=== PATIENT | male | born 1955 | race Caucasian/White ===

== ENCOUNTER 2017-08-04 09:29 | Emergency (ER) | payer SELFPAY ==
[2017-08-04 09:34] VITALS: BP 168/102; BMI 31.3
[2017-08-04 10:00] LABS: BILIRUBIN,URINE NEGATIVE (NEGATIVE); BLOOD/HEMOGLOBIN,URINE 2+ (NEGATIVE); GLUCOSE, URINE 1+ (NEGATIVE); KETONES,URINE 1+ (NEGATIVE); LEUKOCYTE ESTERASE ,URINE 1+ (NEGATIVE); NITRITES,URINE NEGATIVE (NEGATIVE); PROTEIN,URINE 2+ (NEGATIVE); UROBILINOGEN,URINE NORMAL (NORMAL)
[2017-08-04 10:20] LABS: APPEARANCE,URINE CLEAR (CLEAR); BACTERIA,URINE NEGATIVE /HPF (NEGATIVE); COLOR,URINE YELLOW (YELLOW); RBC,URINE RARE /HPF (NEGATIVE); SQUAMOUS EPITHELIAL CELL,UR RARE /HPF (NEGATIVE)
[2017-08-04] MEDS ORDERED: TORADOL 30 MG VIAL IVP ONE (10:23)
[2017-08-04] MEDS ORDERED: NS 1000 ML 1,000 ML IV ONE (10:23)
--- NOTE | 2017-08-04 10:24 | DR.GENAD ---
HPI - PCP Primary Care Physician: CHARLIE NIGRAM - HPI Comment HPI Comment: HISTORY KIDNEY STONE. NO FEVER OR DYSURIA. - Complaint/Symptoms Chief Complaint Doctors Comments: LEFT FLANK PAIN. STARTED LAST NIGHT. Chief Complaint:: PATIENT STATED THAT HE BELIEVES HE HAS A KIDNEY. LAST NIGHT HE STARTED HURTING AND HAS TOOK A NORCO BUT THROUGH UP. HE HAS A HISTORY OF KIDNEY STONES. - Nurses notes reviewed Nurses Notes Review: Yes - Source History Provided: Patient - Mode of Arrival Mode of Arrival: Ambulatory - Timing Onset of Chief Complaint: 08/03/17 Came on: Suddenly - Duration Duration: Constant Duration: Hours - Severity Severity: Moderate PMH - PMH Past Medical History: Yes Past Medical History: Hypertension, Kidney Stones, PUD Past Surgical History: Yes Surgical History: Appendectomy, Ortho Surgery - Family History History of Family Medical Conditions: Yes Family Medical History: Hypertension - Social History Does patient currently use any type of tobacco product: No Have you used tobacco products in the last 12 months: No Type of Tobacco Use: None Does any household member use tobacco: No Alcohol Use: Rarely Do you use any recreational Drugs:: No Lives With: Family Lives Where: Home - infectious screening In the last 2 months have you had wt loss of >10#?: NO Have you had fever, night sweats or hemotysis?: No Have you traveled outside the country in the last 6 months?: No Isolation: Standard ROS - Review of Systems Constitutional: No Symptoms Reported Eyes: No Symptoms Reported ENTM: No Symptoms Reported Respiratoy: No Symptoms Reported Cardiovascular: No Symptoms Reported Gastrointestinal/Abdominal: No Symptoms Reported Genitourinary: No Symptoms Reported Neurological: No Symptoms Reported Musculoskeletal: Other (RIGHT FLANK PAIN) Integumentary: No Symptoms Reported Hematologic/Lymphatic: No Symptoms Reported Endocrine: No Symptoms Reported All Other Systems: Reviewed and Negative PE - Vital Signs Vitals: Temperature 98.5 F Pulse Rate 68 Respiratory Rate 20 Blood Pressure 168/102 O2 Sat by Pulse Oximetry 96 - General Limitations: No Limitations General Appearance: Alert - Head Head Exam: Normal Inspection - Eyes Eye exam: Normal Appearance - ENT ENT Exam: Normal External Ear Exam External Ear Exam: Normal External Inspection TM/Canal Exam: Bilateral Normal Nose Exam: Normal Nose Exam Mouth Exam: Normal Inspection Throat Exam: Normal Inspection - Neck Neck Exam: Normal Inspection, Trachea Midline - Chest Chest Inspection: Symmetric Chest Wall Rise - Respiratory Respiratory Exam: Normal Lung Sounds Bilat Respiratory Exam: Bilateral Clear to Auscultation - Cardiovascular Cardiovascular Exam: Regular Rate, Normal Rhythm, Normal Heart Sounds - Abdominal Exam Abdominal Exam: Normal Bowel Sounds, Soft - Extremities Extremities Exam: Normal Inspection - Back Back Exam: negative: (L) CVA Tenderness - Neurologic Neurological Exam: Alert, Oriented X3 - Psychiatric Psychiatric Exam: Normal Affect, Normal Mood - Skin Skin Exam: Normal Color MDM - Additional Information Additional Information Obtained From: Family - Differential Diagnosis Differential Diagnosis: KIDNEY STONE, UTI Course - Treatment Treatment: SEE ORDERS - Consultation Consultation Comments: DISCUSS PATIENT WITH DR. CLEANING, HE WILL SEE PATIENT IN HIS OFFICE NOW. - Education/Counseling Education/Counseling: Patient, Family, Education Educated On: Treatment, Diagnosis ROR - Labs Reviewed Laboratory Results Reviewed?: Yes Result Diagrams: 08/04/17 10:32 08/04/17 10:32 Laboratory: WBC 13.0 X10^3/uL (3.6-10.0) H 08/04/17 10:32 RBC 5.51 X10^6/uL (4.7-6.0) 08/04/17 10:32 Hgb 16.2 g/dL (13.5-18.0) 08/04/17 10:32 Hct 46.2 % (42.0-54.0) 08/04/17 10:32 MCV 83.8 fL (80.0-100.0) 08/04/17 10:32 MCH 29.5 pg (27.0-34.0) 08/04/17 10:32 MCHC 35.2 g/dL (33.0-35.0) H 08/04/17 10:32 RDW 14.1 % (11.6-16.5) 08/04/17 10:32 Plt Count 162 X10^3/uL (150.0-450.0) 08/04/17 10:32 MPV 9.6 fL (7.4-11.0) 08/04/17 10:32 Neut % 81.4 % (42.0-75.0) H 08/04/17 10:32 Lymph % 8.6 % (21.0-51.0) L 08/04/17 10:32 [place] % 9.0 % (0.0-13.0) 08/04/17 10:32 Eos % 0.2 % (0.9-2.9) L 08/04/17 10:32 Baso % 0.8 % (0.2-1.0) 08/04/17 10:32 Neut # 10.6 x10^3/uL (2.2-4.8) H 08/04/17 10:32 Lymph # 1.1 X10^3/uL (1.3-2.9) L 08/04/17 10:32 [place] # 1.2 x10^3/uL (0.3-0.8) H 08/04/17 10:32 Eos # 0.0 x10^3/uL (0.0-0.2) 08/04/17 10:32 Baso # 0.1 X10^3/uL (0.0-0.1) 08/04/17 10:32 Absolute Nucleated RBC 0.1 /100WBC 08/04/17 10:32 Sodium 136 mmol/L (136-145) 08/04/17 10:32 Corrected Sodium TNP 08/04/17 10:32 Potassium 4.3 mmol/L (3.5-5.1) 08/04/17 10:32 Chloride 103 mmol/L (98-107) 08/04/17 10:32 Carbon Dioxide 25.2 mmol/L (21-32) 08/04/17 10:32 BUN 22 mg/dL (7-18) H 08/04/17 10:32 Creatinine 2.19 mg/dL (0.70-1.30) H 08/04/17 10:32 Est GFR (MDRD) Af Amer 39 (>60) L 08/04/17 10:32 Est GFR (MDRD) Non-Af 32 (>60) L 08/04/17 10:32 Glucose 110 mg/dL (65-99) H 08/04/17 10:32 Calcium 8.8 mg/dL (8.5-10.1) 08/04/17 10:32 Corrected Calcium 9.4 mg/dL (8.5-10.1) 08/04/17 10:32 Total Bilirubin 1.60 mg/dL (0.2-1.0) H 08/04/17 10:32 AST 25 Units/L (15-37) 08/04/17 10:32 ALT 45 Units/L (12-78) 08/04/17 10:32 Alkaline Phosphatase 84 Units/L (46-116) 08/04/17 10:32 Total Protein 6.8 g/dL (6.4-8.2) 08/04/17 10:32 Albumin 3.2 g/dL (3.4-5.0) L 08/04/17 10:32 Globulin 3.6 g/dL (2.5-4.5) 08/04/17 10:32 Albumin/Globulin Ratio 0.9 Ratio (1.1-2.1) L 08/04/17 10:32 Specimen Type Clean catch urine 08/04/17 09:46 Urine Color Yellow (YELLOW) 08/04/17 09:46 Urine Appearance Clear (CLEAR) 08/04/17 09:46 Urine pH 6.0 (5.0 - 8.0) 08/04/17 09:46 Ur Specific [place] 1.015 (1.000-1.030) 08/04/17 09:46 Urine Protein 2+ (NEGATIVE) 08/04/17 09:46 Urine Glucose (UA) 1+ (NEGATIVE) 08/04/17 09:46 Urine Ketones 1+ (NEGATIVE) 08/04/17 09:46 Urine Occult Blood 2+ (NEGATIVE) 08/04/17 09:46 Urine Nitrite Negative (NEGATIVE) 08/04/17 09:46 Urine Bilirubin Negative (NEGATIVE) 08/04/17 09:46 Urine Urobilinogen Normal (NORMAL) 08/04/17 09:46 Ur Leukocyte Esterase 1+ (NEGATIVE) 08/04/17 09:46 Urine RBC Rare /HPF (NEGATIVE) 08/04/17 09:46 Urine WBC 0-2 /HPF (NEGATIVE) 08/04/17 09:46 Ur Squamous Epith Cells Rare /HPF (NEGATIVE) 08/04/17 09:46 Urine Bacteria Negative /HPF (NEGATIVE) 08/04/17 09:46 Ur Culture Indicated? No/not indicated 08/04/17 09:46 - XRAY XRAY Interpreted by: Radiologist XRAY Findings: REPORT DISCUSS WITH PATIENT AND FAMILY. - Diagnosis Discharge Problem: Left flank pain, Left ureteral calculus, Elevated serum creatinine - Discharge Plan Condition: Stable - Follow ups/Referrals Follow ups/Referrals: CHARLIE INGRAM [Primary Care Provider] - 3 days - Instructions Instructions: Kidney Stones, [id number] Additional Instructions: RETURN [facility] IF WORSE. TO DR. JOHNSTON OFFICE IN [place].
[2017-08-04] MEDS ORDERED: ZOFRAN INJ 4 MG VIAL IM ONE (10:26)
[2017-08-04] MEDS ORDERED: NS 1000 ML 1,000 ML ONE (10:29)
[2017-08-04] MEDS ORDERED: ZOFRAN INJ 4 MG VIAL ONE (10:29)
[2017-08-04] MEDS ORDERED: TORADOL 30 MG VIAL ONE (10:30)
[2017-08-04 10:56] LABS: BASOPHILS # (AUTO) 0.1 X10^3/uL (0.0-0.1); BASOPHILS % (AUTO) 0.8 % (0.2-1.0); EOSINOPHILS % (AUTO) 0.2 % (0.9-2.9); HEMATOCRIT 46.2 % (42.0-54.0); HEMOGLOBIN 16.2 g/dL (13.5-18.0); LYMPHOCYTES # (AUTO) 1.1 X10^3/uL (1.3-2.9); LYMPHOCYTES % (AUTO) 8.6 % (21.0-51.0); MEAN CORPUSCULAR HEMOGLOBIN 29.5 pg (27.0-34.0); MEAN CORPUSCULAR HGB CONC 35.2 g/dL (33.0-35.0); MEAN CORPUSCULAR VOLUME 83.8 fL (80.0-100.0); MEAN PLATELET VOLUME 9.6 fL (7.4-11.0); MONOCYTES # (AUTO) 1.2 x10^3/uL (0.3-0.8); NEUTROPHILS # (AUTO) 10.6 x10^3/uL (2.2-4.8); NEUTROPHILS % (AUTO) 81.4 % (42.0-75.0); PLATELET COUNT 162 X10^3/uL (150.0-450.0); RED BLOOD COUNT 5.51 X10^6/uL (4.7-6.0); RED CELL DISTRIBUTION WIDTH 14.1 % (11.6-16.5)
[2017-08-04 10:59] LABS: ALANINE AMINOTRANSFERASE 45 Units/L (12-78); ALBUMIN 3.2 g/dL (3.4-5.0); ALKALINE PHOSPHATASE 84 Units/L (46-116); ASPARTATE AMINO TRANSFERASE 25 Units/L (15-37); BLOOD UREA NITROGEN 22 mg/dL (7-18); CALCIUM 8.8 mg/dL (8.5-10.1); CARBON DIOXIDE 25.2 mmol/L (21-32); CHLORIDE 103 mmol/L (98-107); COR CA(FOR HYPOALB) 9.4 mg/dL (8.5-10.1); CREATININE 2.19 mg/dL (0.70-1.30); SODIUM 136 mmol/L (136-145); TOTAL PROTEIN 6.8 g/dL (6.4-8.2); eGFR BLACK RACES 39 (>60); eGFR NON BLACK RACES 32 (>60)
--- NOTE | 2017-08-04 12:32 | CT ---
HISTORY: Left flank pain, hematuria Study: CT abdomen pelvis without contrast Comparison: 10/11/2016 Technique: Axial noncontrast images with coronal and sagittal reformats. Dose reduction procedures we re used with mA/kv adjusted for body size. Findings: Lung bases are clear. Coronary artery calcifications are present. There is a moderately large hiatal hernia present. The liver and, spleen, adrenal glands, and pancreas are within normal limits to the l imitations of an unenhanced examination. No opaque stones are visible within the gallbladder. There i s a 3 mm a right lower pole renal calculus present. There is a 1 cm hyperdense right renal cyst prese nt. There is mild right-sided hydroureteronephrosis proximal to a 3 mm calculus located at or near th e right ureterovesical junction. There is left-sided hydroureteronephrosis proximal to an 8.6 mm prox imal left ureteral calculus located just distal to the ureteropelvic junction. No intraperitoneal or retroperitoneal lymphadenopathy of significance is identified. The appendix is not identified. There are no secondary signs of appendicitis. There are no findings suggestive of diverticulitis or colitis . Examination of the pelvis demonstrated no evidence for pelvic masses, pelvic fluid, or pelvic lymph adenopathy. No lytic or blastic skeletal lesions are identified. IMPRESSION: 3 mm mildly obstructing distal right ureteral calculus located at or near the right ureterovesical ju nction Obstructing 8.6 mm left ureteral calculus located in the proximal left ureter just distal to the uret eropelvic junction 3 mm nonobstructing right lower pole renal calculus Moderately large hiatal hernia Reported By:
== END 2017-08-04 14:07 | disposition home or self-care (01) ==
LOC: ER 09:37
DX: N20.1 Calculus of ureter (principal); R10.84 Generalized abdominal pain; R79.89 Other specified abnormal findings of blood chemistry; K44.9 Diaphragmatic hernia without obstruction or gangrene
CPT/HCPCS: 36415; 74176; 80053; 81001; 85025; 96365; 96374; 96375; 99283; A4222; J1885; J2405